=== PATIENT | female | born 1965 | race Hispanic/Latino ===

== ENCOUNTER 2019-11-20 13:59 | Emergency (ER) | payer SELFPAY ==
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
[2019-11-20 14:03] VITALS: BP 167/103; PULSE 89; RESP 19; TEMP 37.2; O2SAT 100
[2019-11-20 16:28] VITALS: BP 152/96; PULSE 88; RESP 15; O2SAT 97
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
== END 2019-11-20 17:21 | disposition home or self-care (01) ==
PROVIDERS: Emergency Provider Emergency Medicine
DX: N64.4 Mastodynia (principal)
CPT/HCPCS: 76641; 99284